=== PATIENT | male | born 1970 | race Asian ===

== ENCOUNTER 2022-09-23 18:00 | Inpatient (IN) | payer BC ==
[~2022-09-23] VITALS: Ht 172.7 cm; Wt 147.4 kg
[2022-09-23] MEDS ORDERED: IV NS 0.9% 1,000 ML BAG IV ONE ×2 (18:30→19:30)
[2022-09-23 18:31] LABS: BASOPHILS % (AUTO) 0.3 % (0.0-2.0); EOSINOPHILS % (AUTO) 0.1 % (0.0-6.0); HEMATOCRIT 28 % (39-51); LYMPHOCYTES # (AUTO) 1.2 K/uL (0.8-4.8); LYMPHOCYTES % (AUTO) 7.4 % (20.0-44.0); MEAN CORPUSCULAR HGB CONC 32 g/dl (31.0-36.0); MEAN CORPUSCULAR VOLUME 92 fL (80-96); MONOCYTES # (AUTO) 1.3 K/uL (0.1-1.30); MONOCYTES % (AUTO) 8.4 % (2.0-12.0); NEUTROPHILS # (AUTO) 13.3 K/uL (1.8-8.9); NEUTROPHILS % (AUTO) 83.8 % (43.0-81.0); PLATELET COUNT (AUTO) 663 K/uL (150-450); RED BLOOD CELL COUNT(AUTO) 3.09 MIL/uL (4.5-6.0); WHITE BLOOD COUNT (AUTO) 15.9 K/uL (4.3-11.0)
--- NOTE | 2022-09-23 18:56 | NUR ---
URINE COLLECTED AND SENT TO LAB
--- NOTE | 2022-09-23 18:57 | NUR ---
COVID SWAB COLLECTED AND SENT TO LAB
[2022-09-23 19:08] LABS: CALCIUM, SERUM 9.1 mg/dL (8.5-10.1); CARBON DIOXIDE 26 mmol/L (21-32); CHLORIDE 97 mmol/L (98-107); CREATININE 1.1 mg/dL (0.6-1.3); GLUCOSE 111 mg/dL (74-106); POTASSIUM 4.2 mmol/L (3.5-5.1); SODIUM SERUM 134 mmol/L (136-145); UREA NITROGEN, BLOOD 12 mg/dL (7-18)
[2022-09-23 19:14] LABS: ALANINE AMINOTRANSFERASE 61 U/L (12-78); ALBUMIN 1.6 g/dL (3.4-5.0); ALKALINE PHOSPHATASE 313 U/L (46-116); ASPARTATE AMINOTRANSFERASE 41 U/L (15-37); BILIRUBIN,DIRECT 0.5 mg/dL (0.0-0.2); BILIRUBIN,TOTAL 0.8 mg/dL (0.2-1.0); TOTAL PROTEIN, SERUM 8.5 g/dL (6.4-8.2)
[2022-09-23 19:23] LABS: BILIRUBIN,URINE 1+ (NEGATIVE); COLOR,URINE YELLOW (YELLOW); LEUKOCYTE ESTERASE ,URINE NEGATIVE (NEGATIVE); NITRITE, URINE NEGATIVE (NEGATIVE); PROTEIN,URINE 2+ mg/dl (NEGATIVE); UGLUCOSE NEGATIVE (NEGATIVE)
[2022-09-23] MEDS ORDERED: VANCOMYCIN 1 GM in IV D5W 250 ML IV ONE (19:30)
[2022-09-23] MEDS ORDERED: PIPERACILLIN /TAZOBACTAM 3.375 G in IV D5W 50 ML IV ONE (19:30)
[2022-09-23 19:58] LABS: RBC,URINE 21-50 /HPF (0-2); WBC,URINE 0-2 /HPF (0-3)
[2022-09-23 19:59] LABS: BACTERIA,URINE Rare /HPF (None Seen); SQUAMOUS EPITHELIAL CELL,UR Few /HPF (None Seen)
[2022-09-23] MEDS ORDERED: Z GUARD REMEDY 4 OZ OINT TP PRN (20:00)
[2022-09-23] MEDS ORDERED: MAG HYDROX/AL HYDROX/SIMETH 30 ML UDC PO PRN (20:00)
[2022-09-23] MEDS ORDERED: MAGNESIUM HYDROXIDE 30 ML UDC PO PRN (20:00)
[2022-09-23] MEDS ORDERED: IV NS 0.9% 1,000 ML IV PRN (20:00)
[2022-09-23] MEDS ORDERED: ZOLPIDEM TARTRATE 5 MG TABLET PO PRN (20:00)
[2022-09-23] MEDS ORDERED: ACETAMINOPHEN 325 MG TABLET PO PRN (20:00)
[2022-09-23] MEDS ORDERED: ONDANSETRON HCL/PF 4 MG/2 ML VIAL IVP PRN (20:00)
--- NOTE | 2022-09-23 20:36 | NUR ---
HANDOFF REPORT GIVEN TO [facility].
--- NOTE | 2022-09-23 20:38 | NUR ---
TAKEN TO CT
[2022-09-23 21:45] VITALS: BP_SYST 145; BP_SYST 160; BP_DIAS 66; BP_DIAS 73
--- NOTE | 2022-09-23 21:45 | NUR ---
SUPPLY CHAIN SPECIALIST ADMITTING NOTES PT ARRIVED TO UNIT VIA GURNEY ASSISTED BY ER STAFF AND SISTER AT BEDSIDE. A/O X0, UNABLE TO VERBALIZE OR OBEY COMMANDS. RESPONDS ONLY BY OPENING EYES AND STARING. SOME AGITATION NOTED AND SHAKINESS. VITAL SIGNS: 99.2 F, 160/73 BP, 133 HR, 20 RR, 94% O2. ON RA WITH NO SOB OR LABORED BREATHING. PLACED ON MALE IMPERSONATOR, READING SINUS TACHYCARDIA, 130 HR. CIRCULATION WNL, LUNG SOUNDS CLEAR, BOWEL SOUNDS ACTIVE. SKIN INTACT AND WARM TO TOUCH. IV ACCESS LAC #18G, RFA #20G, PATENT, INTACT, FLUSHING WELL. BELONGINGS DOCUMENTED. MADE COMFORTABLE. WILL REORIENT TO UNIT ONCE ALERT. SAFETY PRECAUTIONS PUT IN PLACE: BED LOCKED AND IN LOW POSITION, SIDE RAILS UP X3, BED ALARM ON, CALL LIGHT AND TRAY TABLE WITHIN REACH. WILL CONTINUE TO MONITOR AND ASSIST.
[2022-09-24] VITALS: BP 152/74
[2022-09-24] MEDS ORDERED: PIPERACILLIN /TAZOBACTAM 3.375 G in IV D5W 50 ML IV SCH ×2
[2022-09-24] MEDS: ACETAMINOPHEN 650 MG/SUPP.RECT RC PRN ×2 (00:49→07:54)
[2022-09-24] MEDS: ZOSYN IVPB 4.5 G in IV D5W 50ml IV SCH ×2 (02:00→08:55)
--- NOTE | 2022-09-24 02:00 | NUR ---
RN NOTE: PT TEMP 104.2 F AT 0030. GIVEN TYLENOL RC 650MG, PT TOLERATED WELL. ICE PACKS GIVEN WELL. TEMP REASSESSED AT 0200, 102.8 F. COOLING MEASURES MAINTAINED, WILL CONTINUE TO MONITOR TEMP.
--- NOTE | 2022-09-24 02:30 | NUR ---
RN NOTE: PT TOLERATING CPAP BETTER PER JEFF RT. REQUESTED CHANGE OF BIPAP / ORDER TO CPAP 10 TO REVENUE SETTLEMENTS ADMINISTRATOR MAYURI ALDRIDGE. REVENUE SETTLEMENTS ADMINISTRATOR APPROVED.
--- NOTE | 2022-09-24 02:51 | NUR ---
RN NOTE: SPOKE TO KARY FROM [facility] TO VERIFY TIMING OF VANCOMYCIN 1.5GM/500ML Q12HR SCHEDULED FOR 0300 SINCE LAST DOSE WAS GIVEN AT 1930 IN ER. KARY EXPLAINED THAT THIS DOSE CAN BE GIVEN BEFORE 12HR SCHEDULE DUE TO PREVIOUS DOSE FROM ER WAS NOT ENOUGH BASED ON PT WEIGHT. WILL ADMINISTER SCHEDULED DOSE ORDERED.
[2022-09-24] MEDS ORDERED: VANCOMYCIN 1.5 GM in IV D5W 500 ML IV SCH (03:00)
--- NOTE | 2022-09-24 03:28 | NUR ---
RN NOTE: SPOKE TO RT JEFF ABOUT ACTIVE EKG ORDER, STATES WILL BE DONE AROUND 0500 WHEN THEY DO THE ABG ORDER.
[2022-09-24 04:24] VITALS: BP 145/66
[2022-09-24 05:17] LABS: ABG BASE EXCESS 2.4 mmol/L; ABG OXYGEN SATURATION 97.9 % (92.0-98.5); ABG PCO2 32.7 mmHg (35.0-45.0); ABG PH 7.507 (7.350-7.450); ABG PO2 105.1 mmHg (75.0-100.0); AaDO2 70.4 mmHg; COHb 0.3 % (0.5-1.5); MetHb 0.3 % (0.0-1.5); O2Hb 97.3 % (94.0-97.0); SITE, ABG Right Radial; VENT MODE, BG CPAP 10 30%
[2022-09-24 06:09] LABS: BASOPHILS # (AUTO) 0.1 K/uL (0.0-0.2); BASOPHILS % (AUTO) 0.3 % (0.0-2.0); EOSINOPHILS % (AUTO) 0.2 % (0.0-6.0); HEMATOCRIT 26 % (39-51); HEMOGLOBIN 8.2 g/dL (13.5-17.5); LYMPHOCYTES # (AUTO) 1.7 K/uL (0.8-4.8); MEAN CORPUSCULAR HGB CONC 32 g/dl (31.0-36.0); MEAN CORPUSCULAR VOLUME 90 fL (80-96); MONOCYTES # (AUTO) 1.9 K/uL (0.1-1.30); MONOCYTES % (AUTO) 12.4 % (2.0-12.0); NEUTROPHILS # (AUTO) 11.7 K/uL (1.8-8.9); NEUTROPHILS % (AUTO) 76.1 % (43.0-81.0); PLATELET COUNT (AUTO) 583 K/uL (150-450); RED BLOOD CELL COUNT(AUTO) 2.86 MIL/uL (4.5-6.0); WHITE BLOOD COUNT (AUTO) 15.4 K/uL (4.3-11.0)
[2022-09-24 06:28] LABS: CALCIUM, SERUM 8.5 mg/dL (8.5-10.1); CREATININE 1.1 mg/dL (0.6-1.3); POTASSIUM 3.1 mmol/L (3.5-5.1)
--- NOTE | 2022-09-24 07:03 | NUR ---
RN NOTE: PT AND FAMILY REFUSING TO SIGN CONSENT FOR XR LUMBAR PUNCTURE AT THIS TIME. 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 WILL ENDORSE TO DAY SHIFT NURSE.
--- NOTE | 2022-09-24 07:15 | NUR ---
SET UP MECHANIC COIL WINDING MACHINES CLOSING NOTES PT RESTING ON BED WITH CPAP ON, AWAKE EASILY AROUSABLE. A/O X0, UNABLE TO VERBALIZE OR OBEY COMMANDS. RESPONDS ONLY BY OPENING EYES AND STARING. STABLE ON RA WITH NO SOB OR LABORED BREATHING. ON REVENUE FIELD AUDITOR, READING SINUS TACHYCARDIA, 108 HR. IV ACCESS LAC #18G, RFA #20G, PATENT, INTACT, FLUSHING WELL, RUNNING NS @ 75 ML/HR. ALL CARE PROVIDED AND MEDS TOLERATED WELL. SAFETY PRECAUTIONS MAINTAINED: BED LOCKED AND IN LOW POSITION, SIDE RAILS UP X3, BED ALARM ON, CALL LIGHT AND TRAY TABLE WITHIN REACH. WILL ENDORSE NINA TO DAY SHIFT NURSE.
--- NOTE | 2022-09-24 07:59 | NUR ---
BALER OPERATOR OPENING NOTES RECEIVED PATIENT AWAKE IN BED, A/O X3, ABLE TO MAKE NEEDS KNOWN. WITH O2 @97%. ON RA WITH NO SOB OR LABORED BREATHING. ON ASSISTANT DISTRICT ATTORNEY, WITH CURRENT READING OF SINUS TACHYCARDIA @105 BPM. IV ACCESS LAC #18G, RFA #20G, PATENT, INTACT, FLUSHING WELL. MADE COMFORTABLE IN BED. SAFETY MEASURES MAINTAINED: BED LOCKED AND IN LOW POSITION, SIDE RAILS UP X3, BED ALARM ON, CALL LIGHT AND TRAY TABLE WITHIN REACH. WILL CONTINUE TO MONITOR AND ASSIST.
--- NOTE | 2022-09-24 08:06 | NUR ---
RN NOTES: PATIENT COMPLAINED OF PAIN, GAVE ACETAMINOPHEN 650 MG SUPPOSITORY PRN FOR PAIN.
[2022-09-24] MEDS ORDERED: CEFU500T66 PO (09:02)
[2022-09-24] MEDS ORDERED: DOXY-326 PO (09:02)
--- NOTE | 2022-09-24 09:15 | NUR ---
AMA NOTES: PATIENT SEEN AND EXAMINED BY DR. JACLYN BRAMBILA, EXPLAINED THE RISK AND BENEFITS OF PREVIOUS DIAGNOSIS. PATIENT WANTED TO FOLLOW UP WITH HIS ORTHO DOCTOR AT [facility] TODAY. PATIENT AND SISTER DECIDED AMA. IV ANTIBIOTICS GIVEN, VITALS CHECKED BP 130/80, HR 89, RR 19, O2 SAT 97%. TELEMONITOR REMOVED, HANDED TO MARIANELA ROSADO. IV ACCESS REMOVED, IDENTIFICATION BAND REMOVED, ALL BELONGINGS TAKEN WITH THE PATIENT. VENDING ROUTE SERVICER ONE HELPED THE PATIENT AND WHEELED IN THE LOBBY. PATIENT LEFT THE UNIT STABLE.
[2022-09-24] MEDS ORDERED: POTASSIUM CL. PREMIX PERIPHER. 50 ML IV SCH (10:00)
== END 2022-09-24 09:30 | disposition left against medical advice (07) | DRG 871 ==
LOC: ER 18:02 → TELE 20:17
PROVIDERS: ADMIT Nurse Practitioner Acute Care; ATTEND Nurse Practitioner Acute Care
DX: A41.9 Sepsis, unspecified organism (principal); E43 Unspecified severe protein-calorie malnutrition; G92.8 Other toxic encephalopathy; J15.9 Unspecified bacterial pneumonia; Z68.42 Body mass index [BMI] 45.0-49.9, adult; J81.1 Chronic pulmonary edema; Z20.822 Contact with and (suspected) exposure to COVID-19; E78.5 Hyperlipidemia, unspecified; G89.29 Other chronic pain; R74.01 Elevation of levels of liver transaminase levels; E88.09 Other disorders of plasma-protein metabolism, not elsewhere classified; E66.01 Morbid (severe) obesity due to excess calories; G47.33 Obstructive sleep apnea (adult) (pediatric); M17.12 Unilateral primary osteoarthritis, left knee
CPT/HCPCS: 36415; 36600; 70450-TC; 71045-TC; 80048-TC; 80076-TC; 81001; 82140-TC; 82550-TC; 82803-TC; 82962-TC; 83605-TC; 83735-TC; 84100-TC; 84484-TC; 85025-TC; 85730-TC; 87040-TC; 87081-TC; 87086-TC; 94799-TC; A4223; C9803; G0378; J2543; J3370; J7030; J7060

== ENCOUNTER 2024-08-29 13:55 | Outpatient (CLI) | payer MEDICARE, MEDICAID ==
[~2024-08-29 13:55] MED LIST: CEFU500T66 PO; COLLAGENASE 5 GM TUBE UD TP ONE; DOXY-326 PO
== END 2024-08-29 23:59 | disposition home health service (06) ==
LOC: WOU 13:55
PROVIDERS: ATTEND Student in an Organized Health Care Education/Training Program
DX: E11.621 Type 2 diabetes mellitus with foot ulcer (principal); L97.522 Non-pressure chronic ulcer of other part of left foot with fat layer exposed; E11.40 Type 2 diabetes mellitus with diabetic neuropathy, unspecified; E11.51 Type 2 diabetes mellitus with diabetic peripheral angiopathy without gangrene; Z79.4 Long term (current) use of insulin; Z79.84 Long term (current) use of oral hypoglycemic drugs; B35.1 Tinea unguium
CPT/HCPCS: 11042